=== PATIENT | female | born 1955 | race Caucasian/White ===

== ENCOUNTER 2018-01-15 15:53 | Emergency (ER) | payer OTHER ==
[2018-01-15 16:21] VITALS: BP 102/71
--- NOTE | 2018-01-15 16:54 | UC ---
Ear Complaint HPI - HPI Summary HPI Summary: Patient is a 62-year-old female presenting to the with complaint of one day of mild dizziness, worse upon wakening, left ear feeling clogged without pain and allergy symptoms such as swollen hands and itchy eyes bilaterally. She states she has been staying in a cabin the past day which is when her symptoms began. Has a history of allergies, but states this feels worse. He also endorses some scratchy throat. - History of Current Complaint Chief Complaint: UCEar Stated Complaint: EAR CLOGGED Time Seen by Provider: 01/15/18 16:27 Hx Obtained From: Patient Hx Last Menstrual Period: na ?: No Onset/Duration: Sudden Onset Severity Initially: Moderate Severity Currently: Moderate Pain Intensity: 0 Pain Scale Used: 0-10 Numeric Associated Signs/Symptoms: Positive: Discharge - Allergies/Home Medications Allergies/Adverse Reactions: Allergies Allergy/AdvReac Type Severity Reaction Status Date / Time No Known Allergies Allergy Verified 01/15/18 16:21 PMH/Surg Hx/FS Hx/Imm Hx Previously Healthy: Yes - Surgical History Surgical History: Yes Surgery Procedure, Year, and Place: rotator cuff - Family History Known Family History: Positive: Unknown - Social History Occupation: Unemployed Lives: With Family Alcohol Use: Occasionally Substance Use Type: None Smoking Status (MU): Never Smoked Tobacco Review of Systems Constitutional: Negative Skin: Negative ENT: Ear Ache - left ear drainage and fullness Respiratory: Negative Cardiovascular: Negative Motor: Negative Neurovascular: Negative Neurological: Other - dizziness Psychological: Negative Is Patient Immunocompromised?: No All Other Systems Reviewed And Are Negative: Yes Physical Exam Triage Information Reviewed: Yes Appearance: Well-Appearing, Well-Nourished Vital Signs: Initial Vital Signs Temp 98.6 F 01/15/18 16:15 Pulse 65 01/15/18 16:15 Resp 20 01/15/18 16:15 BP 102/71 01/15/18 16:15 Pulse Ox 99 01/15/18 16:15 Vital Signs Reviewed: Yes Eye Exam: Normal Eyes: Positive: Conjunctiva Clear ENT: Positive: Other - left ear drainage Neck exam: Normal Neck: Positive: Supple, No Lymphadenopathy Respiratory Exam: Normal Respiratory: Positive: Chest non-tender, Lungs clear Cardiovascular Exam: Normal Cardiovascular: Positive: RRR Musculoskeletal Exam: Normal Musculoskeletal: Positive: Strength Intact Psychological: Positive: Normal Response To Family Skin Exam: Normal Ear Complaint Course/Dx - Course Course Of Treatment: On physical examination, the left ear canal is visualized with an erythematous canal with serous fluid drainage. Patient states she was swimming yesterday. This appears to be a mild otitis externa. She is given ofloxacin drops. She is encouraged allergy medication. Likely this is due to 2 also worsening allergies that she is in a new environment and staying at a cabin currently. She is agreeable to this plan and will return for any worsening or changing symptoms. - Differential Dx/Diagnosis Differential Diagnosis/HQI/PQRI: Cerumen Impaction, Foreign Body, Otitis Externa , Otitis Media Provider Diagnoses: otitis externa Discharge - Sign-Out/Discharge Documenting (check all that apply): Patient Departure - Discharge Plan Condition: Stable Disposition: HOME Prescriptions: Ofloxacin 0.3% OTIC.YEFRI* [Floxin 0.3% OTIC.YEFRI*] 1 drop .SEE ORDER DAILY #1 btl Patient Education Materials: Otitis Externa (ED) Referrals: No Primary Care Phys,NOPCP [Primary Care Provider] - Additional Instructions: Allergy medications are very important Ofloxacin 10 drops into affected ear once daily Swimmers ear (hydrogen peroxide) if you are swimming - use this immediately following - Billing Disposition and Condition Condition: STABLE Disposition: Home
== END 2018-01-15 16:50 | disposition home or self-care (01) ==
LOC: UCEAST 15:53
DX: H60.92 Unspecified otitis externa, left ear (principal)
CPT/HCPCS: 99202; G0463